=== PATIENT | female | born 1960 | race Caucasian/White ===

== ENCOUNTER 2022-08-28 01:35 | Emergency (ER) | payer MEDICARE | END 2022-08-28 03:50 | disposition home or self-care (01) | LOC: FER 01:35 | DX: R20.2 Paresthesia of skin (principal); F91.8 Other conduct disorders; F17.200 Nicotine dependence, unspecified, uncomplicated; Z88.2 Allergy status to sulfonamides | CPT/HCPCS: 93970 ==